=== PATIENT | male | born 1995 | race Hispanic/Latino ===

== ENCOUNTER 2021-10-24 18:54 | Emergency (ER) | payer OTHER, SELFPAY ==
[2021-10-24 21:06] LABS: Absolute Lymphocytes (CBC) 1.7 K/uL (0.7-4.9); Hematocrit 46.7 % (39.6-49.0); Lymphocytes % 22.7 % (15.3-44.8); MPV 8.1 fL (7.6-11.3)
[2021-10-24 21:19] LABS: BUN Blood Urea Nitrogen 13 mg/dL (7-18); Bicarbonate 28 mmol/L (21-32); Glucose Level 108 mg/dL (74-106); Potassium 4.1 mmol/L (3.5-5.1); Sodium Level 140 mmol/L (136-145)
--- NOTE | 2021-10-24 22:00 | ER ---
Nurse's Notes [facility] Name: Elvis Mcdonald Age: 25 yrs Sex: Male : 1995 Arrival Date: 10/24/2021 Time: 18:56 Bed 10 Private MD: Diagnosis: Syncope;Unspecified injury of head, initial encounter Presentation: 10/24 19:28 Chief complaint: Patient states: I passed out earlier and hit my head on a rail at 3 work, states he didn't eat much food today, states had a syncope episode prior to hitting head. Coronavirus screen: Vaccine status: Patient reports being unvaccinated. Ebola Screen: No symptoms or risks identified at this time. Initial Sepsis Screen: Does the patient meet any 2 criteria? No. Patient's initial sepsis screen is negative. Does the patient have a suspected source of infection? No. Patient's initial sepsis screen is negative. Risk Assessment: Do you want to hurt yourself or someone else? Patient reports no desire to harm self or others. Onset of symptoms was October 24, 2021 at 06:30. 19:28 Method Of Arrival: Ambulatory 3 19:28 Acuity: ALMA 4 ll3 Triage Assessment: 19:41 General: Appears comfortable, Behavior is cooperative, anxious. Pain: Complains of pain ll3 in right hinduism. Neuro: Level of Consciousness is awake, alert, confused, Oriented to person, place, time, situation. Cardiovascular: Patient's skin is warm and dry. Respiratory: Respiratory effort is even, unlabored, Respiratory pattern is regular, symmetrical. Derm: Scratch to right hinduism. Historical: - Allergies: 19:41 No Known Allergies; ll3 - Home Meds: 19:41 None [Active]; ll3 - PMHx: 19:41 None; ll3 - PSHx: 19:41 None; ll3 - Immunization history:: Client reports having NOT received the Covid vaccine. - Social history:: Patient uses street drugs, marijuana, Smoking status: unknown. Screenin:07 Abuse screen: Denies threats or abuse. Nutritional screening: No deficits noted. sf1 Tuberculosis screening: No symptoms or risk factors identified. Fall Risk None identified. Vital Signs: 19:28 BP 99 / 63; Pulse 62; Resp 15; Temp 97.8(O); Pulse Ox 100% on R/A; Weight 81.65 kg (R); ll3 Height 5 ft. 9 in. (175.26 cm) (R); Pain 3/10; 21:43 BP 100 / 60 Supine; Pulse 50; Pulse Ox 99% ; ds4 21:46 BP 108 / 66 Sitting; Pulse 52; Pulse Ox 100% ; ds4 21:49 BP 104 / 69 Standing; Pulse 55; Pulse Ox 99% ; ds4 19:28 Body Mass Index 26.58 (81.65 kg, 175.26 cm) ll3 ED Course: 18:56 Patient arrived in ED. ds1 19:41 Triage completed. ll3 19:41 Arm band placed on left wrist. ll3 20:33 Mary Ann Cancino FNP-C [facility]. kb 20:33 Marck Peoples MD is Attending Physician. kb 20:44 Lisy Carey RN is Primary Nurse. sf1 20:56 Inserted saline lock: 20 gauge in right antecubital area, using aseptic technique. sf1 Blood collected. 20:57 CBC with Diff Sent. sf1 20:57 Basic Metabolic Panel Sent. sf1 22:07 Patient has correct armband on for positive identification. sf1 22:07 No provider procedures requiring assistance completed. IV discontinued, intact, sf1 bleeding controlled, No redness/swelling at site. Pressure dressing applied. Administered Medications: No medications were administered Point of Care Testing: Blood Glucose: 19:41 Blood Glucose: 103 mg/dL; ll3 Ranges: Outcome: 21:59 Discharge ordered by MD. kb 22:07 Discharged to home ambulatory. sf1 22:07 Condition: good 22:07 Discharge instructions given to patient, Instructed on discharge instructions, follow up and referral plans. Demonstrated understanding of instructions, follow-up care. 22:08 Patient left the ED. sf1 Signatures: Mary Ann Cancino FNP-C MANAGER EDUCATIONAL-Ramonita Flores ds1 Everett Guerra ds4 Lance Alonzo RN RN 3 Lisy Carey RN RN sf1 Corrections: (The following items were deleted from the chart) 21:51 21:46 BP 108 / 66; Pulse 52bpm; Pulse Ox 100%; ds4 ds4
--- NOTE | 2021-10-24 22:00 | EDPHYS ---
Physician Documentation [facility] Name: Elvis Mcdonald Age: 25 yrs Sex: Male : 1995 Arrival Date: 10/24/2021 Time: 18:56 Bed 10 Private MD: ED Physician Marck Peoples HPI: 10/24 21:40 This 25 yrs old Male presents to ER via Ambulatory with complaints of Blacked kb Out-Hit Head. 21:41 The patient has experienced syncope, collapsed. Onset: The symptoms/episode kb began/occurred at 18:30. Duration: This was a single episode, that lasted 5 second(s). Context: the episode(s) was witnessed, by co-worker(s), occurred at work, occurred while the patient was standing, Just prior to the episode the patient experienced no apparent symptoms. Associated injury: The patient did not suffer any apparent associated injury. Associated signs and symptoms: The patient has no apparent associated signs or symptoms. Current symptoms: Currently, the patient is not experiencing any symptoms, the patient feels back to baseline, no decreased level of consciousness, no confusion, no dysphasia, no headache, no paralysis, no visual changes. The patient has experienced similar episodes in the past, a few times. The patient has not recently seen a physician. Pt reports he was standing up at work, washing dishes when he passed out. States he hit his head so that is why he came in. States this has happened a few times in the past because his blood sugar drops. Denies headache, dizziness. States he feels normal . Historical: - Allergies: 19:41 No Known Allergies; ll3 - Home Meds: 19:41 None [Active]; ll3 - PMHx: 19:41 None; ll3 - PSHx: 19:41 None; ll3 - Immunization history:: Client reports having NOT received the Covid vaccine. - Social history:: Patient uses street drugs, marijuana, Smoking status: unknown. ROS: 21:38 Constitutional: Negative for fever, chills, and weight loss. kb 21:38 Neuro: Positive for syncope. 21:38 All other systems are negative. Exam: 21:39 Constitutional: This is a well developed, well nourished patient who is awake, alert, kb and in no acute distress. Head/Face: Normocephalic, atraumatic. Eyes: Pupils equal round and reactive to light, extra-ocular motions intact. Lids and lashes normal. Conjunctiva and sclera are non-icteric and not injected. Cornea within normal limits. Periorbital areas with no swelling, redness, or edema. ENT: Moist Mucous membranes Cardiovascular: Regular rate and rhythm with a normal S1 and S2. No gallops, murmurs, or rubs. No pulse deficits. Respiratory: Respirations even and unlabored. No increased work of breathing. Talking in full sentences Skin: Warm, dry with normal turgor. Normal color. MS/ Extremity: Pulses equal, no cyanosis. Neurovascular intact. Full, normal range of motion. Neuro: Awake and alert, GCS 15, oriented to person, place, time, and situation. Moves all extremities. Normal gait. Psych: Awake, alert, with orientation to person, place and time. Behavior, mood, and affect are within normal limits. Vital Signs: 19:28 BP 99 / 63; Pulse 62; Resp 15; Temp 97.8(O); Pulse Ox 100% on R/A; Weight 81.65 kg (R); ll3 Height 5 ft. 9 in. (175.26 cm) (R); Pain 3/10; 21:43 BP 100 / 60 Supine; Pulse 50; Pulse Ox 99% ; ds4 21:46 BP 108 / 66 Sitting; Pulse 52; Pulse Ox 100% ; ds4 21:49 BP 104 / 69 Standing; Pulse 55; Pulse Ox 99% ; ds4 19:28 Body Mass Index 26.58 (81.65 kg, 175.26 cm) ll3 MDM: 20:34 Patient medically screened. kb 21:38 Data reviewed: vital signs, nurses notes. Data interpreted: Pulse oximetry: on room air kb is 100 %. Interpretation: normal. 21:58 Counseling: I had a detailed discussion with the patient and/or guardian regarding: the kb historical points, exam findings, and any diagnostic results supporting the discharge/admit diagnosis, lab results, the need for outpatient follow up, a family practitioner, to return to the emergency department if symptoms worsen or persist or if there are any questions or concerns that arise at home. 10/24 19:51 Order name: Glucose, Ancillary Testing; Complete Time: 20:34 EDMS 10/24 20:40 Order name: CBC with Diff; Complete Time: 21:10 kb 10/24 20:40 Order name: EKG; Complete Time: 20:40 kb 10/24 20:40 Order name: EKG - Nurse/Tech; Complete Time: 21:27 kb 10/24 20:40 Order name: Basic Metabolic Panel; Complete Time: 21:21 kb 10/24 20:40 Order name: Orthostatics; Complete Time: 21:49 kb Administered Medications: No medications were administered Point of Care Testing: Blood Glucose: 19:41 Blood Glucose: 103 mg/dL; ll3 Ranges: Critical Glucose Levels:Adult <50 mg/dl or >400 mg/dl <40 mg/dl or >180 mg/dl Disposition Summary: 10/24/21 21:59 Discharge Ordered Location: Home kb Condition: Stable kb Diagnosis - Syncope kb - Unspecified injury of head, initial encounter kb Followup: kb - With: Emergency Department - When: As needed - Reason: Worsening of condition Followup: kb - With: Private Physician - When: 2 - 3 days - Reason: Recheck today's complaints, Continuance of care, Re-evaluation by your physician Discharge Instructions: - Discharge Summary Sheet kb - Syncope, [id number] kb - Head Injury, Adult, [id number] kb Forms: - Medication Reconciliation Form kb - Thank You Letter kb - Antibiotic Education kb - Prescription Opioid Use kb Signatures: Dispatcher [employer] Mary Ann Pinzon, DALTON-C MOTOR VEHICLE LECTURER-Lance Fields, RN RN ll3 Lisy Carey RN RN sf1
[2021-10-25 00:41] VITALS: TEMP 97.8
[2021-10-25 00:44] VITALS: BP 104/69; O2SAT 99
--- NOTE | 2021-10-25 13:04 | EKG ---
Test Date: 2021-10-24 Test Time: 21:27:13 Dip Painter: CASE MEASUREMENT RESULTS: Intervals: Rate: 55 IA: 102 QRSD: 102 QT: 390 QTc: 373 [place]: P: 39 IA: 102 QRS: 89 T: 33 INTERPRETIVE STATEMENTS: Sinus bradycardia with sinus arrhythmia with short IA Otherwise normal ECG No previous ECG available for comparison Electronically Signed On 10-25-21 13:02:54 LOT TECHNICIAN by Pablo Sal
== END 2021-10-24 22:08 | disposition home or self-care (01) ==
LOC: ER 18:54
DX: S09.90XA Unspecified injury of head, initial encounter (principal)
CPT/HCPCS: 36415; 80048; 82947; 85025; 93005; 99283

== ENCOUNTER 2024-08-14 21:21 | Emergency (ER) | payer SELFPAY ==
[2024-08-15] MEDS ORDERED: ONDANSETRON 4 MG (ODT) TAB ONE (01:50)
--- NOTE | 2024-08-15 02:02 | ER ---
Nurse's Notes [facility] Name: Elvis Mcdonald Age: 28 yrs Sex: Male : 1995 Arrival Date: 08/14/2024 Time: 21:21 Bed 12 Private MD: Diagnosis: Presentation: 08/14 22:15 Chief complaint: Patient states: MOTH FLEW IN RIGHT EAR AND I PUT CASTOR OIL IN IT AND vc1 CAN'T GET THE MOTH OUT. Coronavirus screen: Client denies travel out of the [place] in the last 14 days. At this time, the client does not indicate any symptoms associated with coronavirus-19. Ebola Screen: Patient negative for fever greater than or equal to 101.5 degrees Fahrenheit, and additional compatible Ebola Virus Disease symptoms Patient denies exposure to infectious person. Patient denies travel to an Ebola-affected area in the 21 days before illness onset. No symptoms or risks identified at this time. 22:15 Method Of Arrival: Ambulatory vc1 22:15 Initial Sepsis Screen: Does the patient meet any 2 criteria? No. Patient's initial vc1 sepsis screen is negative. Does the patient have a suspected source of infection? No. Patient's initial sepsis screen is negative. Risk Assessment: Do you want to hurt yourself or someone else? Patient reports no desire to harm self or others. 22:15 Acuity: ALMA 5 vc1 Triage Assessment: 22:15 General: Appears in no apparent distress. vc1 Historical: - Allergies: 22:15 No Known Allergies; vc1 - Home Meds: 22:15 None [Active]; vc1 - PMHx: 22:15 None; vc1 - PSHx: 22:15 None; vc1 - Immunization history:: Client reports having NOT received the Covid vaccine. - Infectious Disease History:: Denies. Screenin:15 [facility] ED Fall Risk Assessment (Adult) History of falling in the last 3 months, vc1 including since admission No falls in past 3 months (0 pts) Confusion or Disorientation No (0 pts) Intoxicated or Sedated No (0 pts) Impaired Gait No (0 pts) Mobility Assist Device Used No (0 pt) Altered Elimination No (0 pt) Score/Fall Risk Level 0 - 2 = Low Risk Oriented to surroundings, Maintained a safe environment, Educated pt \T\ family on fall prevention, incl call for assistance when getting out of bed. Abuse screen: Denies threats or abuse. Vital Signs: 22:15 BP 103 / 66; Pulse 60; Resp 14; Temp 98; Pulse Ox 98% ; Weight 72.57 kg; Height 5 ft. vc1 10 in. ; 22:15 Body Mass Index 22.96 (72.57 kg, 177.8 cm) vc1 ED Course: 21:25 Patient arrived in ED. gm2 22:15 Matheus Rinaldi MD is Attending Physician. ec2 22:15 Arm band placed on right wrist. vc1 08/15 02:00 No provider procedures requiring assistance completed. vc1 04:27 Triage completed. vc1 Administered Medications: No medications were administered Outcome: 02:01 Eloped from waiting room, after seeing physician vc1 02:01 Condition: good 02:02 Patient left the ED. vc1 Signatures: Lotus Cisneros RN RN vc1 Matheus Rinaldi MD MD ec2 Rhonda Reynolds 2
--- NOTE | 2024-08-15 02:02 | EDPHYS ---
Physician Documentation [facility] Name: Elvis Mcdonald Age: 28 yrs Sex: Male : 1995 Arrival Date: 08/14/2024 Time: 21:21 Bed 12 Private MD: ED Physician Matheus Rinaldi HPI: 08/14 22:19 This 28 yrs old Male presents to ER via Unassigned with complaints of Insect ec2 Bite. 22:19 Patient arrives today with retained foreign body in the right ear. States some altered ec2 flow into the right ear and subsequently after he applied a castor oil to the area. Otherwise no concerns, no trauma to the ear.. Historical: - Allergies: 22:15 No Known Allergies; vc1 - Home Meds: 22:15 None [Active]; vc1 - PMHx: 22:15 None; vc1 - PSHx: 22:15 None; vc1 - Immunization history:: Client reports having NOT received the Covid vaccine. - Infectious Disease History:: Denies. ROS: 22:19 Constitutional: as per hpi ec2 Exam: 22:19 Constitutional: GEN: NAD Head: atraumatic Eyes: EOMI Ears: External ears are normal. ec2 Right ear with bug in the right ear, no trauma to the tympanic membrane. CV: regular rate LUNGS: no respiratory distress ABD: non-distended SKIN: no evidence of rashes MSK: no evidence of trauma Vital Signs: 22:15 BP 103 / 66; Pulse 60; Resp 14; Temp 98; Pulse Ox 98% ; Weight 72.57 kg; Height 5 ft. vc1 10 in. ; 22:15 Body Mass Index 22.96 (72.57 kg, 177.8 cm) vc1 MDM: 22:15 Medical Screening Exam initiated ec2 22:19 Data reviewed: vital signs, nurses notes. ED course: Patient arrives today for retained ec2 foreign body in the right ear. Examination remarkable for a right as above. Will give the patient Zofran and irrigate the ear for the particulate.. Administered Medications: No medications were administered Disposition Summary: 08/15/24 02:02 Eloped Notes: Disposition: after being seen by provider vc1 Reason: wait time vc1 Discharge Instructions: - Discharge Summary Sheet ec2 - Ear Foreign Body, [id number] ec2 Signatures: Lotus Cisneros, RN RN vc1 Matheus Rinaldi MD MD ec2
== END 2024-08-15 02:02 | disposition left against medical advice (07) ==
LOC: ER 21:21
DX: T16.1XXA Foreign body in right ear, initial encounter (principal)
CPT/HCPCS: 99281; Q0162

== ENCOUNTER 2024-08-15 23:36 | Emergency (ER) | payer SELFPAY ==
--- NOTE | 2024-08-16 00:22 | ER ---
Nurse's Notes [facility] Name: Elvis Mcdonald Age: 28 yrs Sex: Male : 1995 Arrival Date: 08/15/2024 Time: 23:36 Bed 7 Private MD: Diagnosis: Foreign body in right ear Presentation: 08/15 23:46 Chief complaint: Patient states: bug in right ear X2 days. Coronavirus screen: Client lg3 denies travel out of the [place] in the last 14 days. At this time, the client does not indicate any symptoms associated with coronavirus-19. Ebola Screen: No symptoms or risks identified at this time. Initial Sepsis Screen: Does the patient meet any 2 criteria? No. Patient's initial sepsis screen is negative. Does the patient have a suspected source of infection? No. Patient's initial sepsis screen is negative. Risk Assessment: Do you want to hurt yourself or someone else? Patient reports no desire to harm self or others. Onset of symptoms was August 13, 2024. 23:46 Method Of Arrival: Ambulatory lg3 23:46 Acuity: ALMA 5 lg3 Triage Assessment: 23:47 General: Appears in no apparent distress. comfortable, Behavior is calm, cooperative. lg3 Pain: Denies pain. EENT: Reports bug in right ear. Neuro: No deficits noted. Santiago Agitation-Sedation Scale (RASS): 0 - Alert and Calm Level of Consciousness is awake, alert, obeys commands, Oriented to person, place, time, situation. Cardiovascular: No deficits noted. Denies chest pain, shortness of breath, Capillary refill < 3 seconds Clubbing of nail beds is absent JVD is absent Patient's skin is warm and dry. Respiratory: No deficits noted. Airway is patent Respiratory effort is even, unlabored, Respiratory pattern is regular, symmetrical. GI: No deficits noted. No signs and/or symptoms were reported involving the gastrointestinal system. : No signs and/or symptoms were reported regarding the genitourinary system. Derm: No deficits noted. No signs and/or symptoms reported regarding the dermatologic system. Skin is intact, is healthy with good turgor, Skin is dry, Skin is normal, Skin temperature is warm. Musculoskeletal: No deficits noted. No signs and/or symptoms reported regarding the musculoskeletal system. Circulation, motion, and sensation intact. Range of motion: intact in all extremities. Historical: - Allergies: 23:47 No Known Allergies; lg3 - Home Meds: 23:47 None [Active]; lg3 - PMHx: 23:47 None; lg3 - PSHx: 23:47 None; lg3 - Immunization history:: Adult Immunizations up to date. - Infectious Disease History:: Denies. - Social history:: Smoking status: Reported history of juuling and/or vaping. Patient uses alcohol, occasionally. street drugs, THC. Screenin:57 [facility] ED Fall Risk Assessment (Adult) History of falling in the last 3 months, bm8 including since admission No falls in past 3 months (0 pts) Confusion or Disorientation No (0 pts) Intoxicated or Sedated No (0 pts) Impaired Gait No (0 pts) Mobility Assist Device Used No (0 pt) Altered Elimination No (0 pt) Score/Fall Risk Level 0 - 2 = Low Risk Oriented to surroundings, Maintained a safe environment, Educated pt \T\ family on fall prevention, incl call for assistance when getting out of bed, Assessed \T\ reinforced patient's understanding of fall precautions, Hourly rounding (assess needs \T\ fall precautionary measures) done, Used ambulatory aids as needed (educated on \T\ assisted with), Used gait belt as appropriate. Abuse screen: Denies threats or abuse. Nutritional screening: No deficits noted. Tuberculosis screening: No symptoms or risk factors identified. Assessment: 23:57 Reassessment: Patient appears in no apparent distress at this time. No changes from bm8 previously documented assessment. Patient and/or family updated on plan of care and expected duration. Pain level reassessed. Patient is alert, oriented x 3, equal unlabored respirations, skin warm/dry/pink. plan of care discussed with provider. Vital Signs: 23:46 BP 126 / 77; Pulse 84; Resp 16 S; Temp 97.8(O); Pulse Ox 99% on R/A; Weight 97.52 kg lg3 (R); Height 5 ft. 10 in. (R); 23:46 Body Mass Index 30.85 (97.52 kg, 177.8 cm) lg3 [place] Coma Score: 23:57 Eye Response: spontaneous(4). Motor Response: obeys commands(6). Verbal Response: bm8 oriented(5). Total: 15. ED Course: 23:40 Patient arrived in ED. mr 23:44 Mary Ann Cancino FNP-C is [facility]. kb 23:44 Alphonso Escobar MD is Attending Physician. kb 23:47 Triage completed. lg3 23:47 Arm band placed on right wrist. lg3 23:57 Angel Hernandez, RN is Primary Nurse. bm8 23:57 Patient has correct armband on for positive identification. Bed in low position. Call bm8 light in reach. Side rails up X 1. Provided Education on: post er care. Client placed on continuous cardiac and pulse oximetry monitoring. NIBP monitoring applied. nut sorter operator on. Pulse ox on. NIBP on. Door closed. Noise minimized. Warm blanket given. Pillow given. Verbal reassurance given. Head of bed elevated. 23:57 No provider procedures requiring assistance completed. Patient did not have IV access bm8 during this emergency room visit. Patient maintains SpO2 saturation greater than 95% on room air. 12 00:21 Dionna Gaytan MD is Referral Physician. kb Administered Medications: No medications were administered Medication: 12 23:57 VIS not applicable for this client. bm8 Outcome: 08/16 00:21 Discharge ordered by . kb 00:28 Discharged to home ambulatory, bm8 00:28 Condition: stable 00:28 Discharge instructions given to patient, family, Instructed on discharge instructions, follow up and referral plans. safety practices, Demonstrated understanding of instructions, follow-up care, medications, 00:29 Patient left the ED. bm8 Signatures: Mary Ann Cancino FNP-C FNP-Kassandra Rasmussen, Willie Reg mr MercadoLisette, RN RN 3 Angel Hernandez, RN RN bm8
--- NOTE | 2024-08-16 00:22 | EDPHYS ---
Physician Documentation [facility] Name: Elvis Mcdonald Age: 28 yrs Sex: Male : 1995 Arrival Date: 08/15/2024 Time: 23:36 Bed 7 Private MD: ED Physician Alphonso Escobar HPI: 08/15 23:42 This 28 yrs old Male presents to ER via Unassigned with complaints of Bug in kb Ear. 23:42 Pt is a 28 year old male who presents for a bug in his right ear. States it flew into kb his ear 2 nights ago and he hasn't been able to get it out. States he killed the bug, but was not successful in removing it. Denies any other symptoms. Historical: - Allergies: 23:47 No Known Allergies; lg3 - Home Meds: 23:47 None [Active]; lg3 - PMHx: 23:47 None; lg3 - PSHx: 23:47 None; lg3 - Immunization history:: Adult Immunizations up to date. - Infectious Disease History:: Denies. - Social history:: Smoking status: Reported history of juuling and/or vaping. Patient uses alcohol, occasionally. street drugs, THC. ROS: 23:44 Constitutional: As per HPI kb Exam: 23:47 Constitutional: This is a well developed, well nourished patient who is awake, alert, kb and in no acute distress. Head/Face: Normocephalic, atraumatic. Cardiovascular: Regular rate Respiratory: Respirations even and unlabored. No increased work of breathing. Talking in full sentences Skin: Warm, dry with normal turgor. Normal color. MS/ Extremity: Pulses equal, no cyanosis. Neurovascular intact. Full, normal range of motion. Neuro: Awake and alert, GCS 15, oriented to person, place, time, and situation. 23:47 ENT: External ear(s): are unremarkable, Ear canal(s): foreign body, an insect, in the right external ear canal, TM's: are normal, Vital Signs: 23:46 BP 126 / 77; Pulse 84; Resp 16 S; Temp 97.8(O); Pulse Ox 99% on R/A; Weight 97.52 kg lg3 (R); Height 5 ft. 10 in. (R); 23:46 Body Mass Index 30.85 (97.52 kg, 177.8 cm) lg3 Cristian Coma Score: 23:57 Eye Response: spontaneous(4). Motor Response: obeys commands(6). Verbal Response: bm8 oriented(5). Total: 15. Procedures: 08/16 00:19 Foreign Body Removal: small darby in the Right ear , from the right ear canal, by using sp4 alligator clamps, using a cotton-tipped swab, Attempted removal - not successful . The patient tolerated the removal poorly, Removal not successful , patient could not tolerate removal . MDM: 08/15 23:44 Data reviewed: vital signs, nurses notes. kb 23:48 Differential diagnosis: otitis externa, foreign body, acute otalgia. kb 23:48 Medical Screening Exam initiated kb 08/16 00:21 Counseling: I had a detailed discussion with the patient and/or guardian regarding the kb historical points, exam findings, and any diagnostic results supporting the discharge/admit diagnosis, the need for outpatient follow up, an ENT specialist, to return to the emergency department if symptoms worsen or persist or if there are any questions or concerns that arise at home. Administered Medications: No medications were administered Disposition: 00:31 Co-signature as Attending Physician, Alphonso Escobar MD I agree with the assessment sp4 and plan of care. I reviewed the patient's care provided by Advanced Practice Provider \T\ agree w/ the diagnosis \T\ care plan. I personally saw the pt \T\ performed a substantive portion of the visit, incldng all aspects of the (History/Exam/Medical Decision Making). Disposition Summary: 08/16/24 00:21 Discharge Ordered Notes: Location: Home kb Condition: Stable kb Diagnosis - Foreign body in right ear kb Followup: kb - With: Emergency Department - When: As needed - Reason: Worsening of condition Followup: kb - With: Private Physician - When: 2 - 3 days - Reason: Recheck today's complaints, Continuance of care, Re-evaluation by your physician Followup: kb - With: Dionna Gaytan MD - When: 1 - 2 days - Reason: Recheck today's complaints Discharge Instructions: - Discharge Summary Sheet kb - Ear Foreign Body, [id number] kb Forms: - Medication Reconciliation Form kb - Antibiotic Education kb - Prescription Opioid Use kb - Patient Portal Instructions kb - Leadership Thank You Letter kb Signatures: Mary Ann Cancino FNP-C FNP-Ckb Able, Lacie RN RN lg3 Alphonso Escobar MD MD sp4
[2024-08-16] MEDS ORDERED: IBUPROFEN 400 MG TAB ONE (00:26)
[2024-08-16 05:43] VITALS: BP 126/77; TEMP 97.8; O2SAT 99
== END 2024-08-16 00:29 | disposition home or self-care (01) ==
LOC: ER 23:36
DX: T16.1XXA Foreign body in right ear, initial encounter (principal)
CPT/HCPCS: 99284